=== PATIENT | female | born 1940 | race Hispanic/Latino ===

== ENCOUNTER 2021-05-20 17:32 | Emergency (ER) | payer SELFPAY ==
[2021-05-20 19:02] LABS: Absolute Lymphocytes (CBC) 2.8 K/uL (0.7-4.9); Basophils % 0.7 % (0-1.3); Hematocrit 41.3 % (36.0-45.0); MPV 9.4 fL (7.6-11.3); RBC Red Blood Cell Count 4.49 M/uL (3.86-4.86)
[2021-05-20 19:19] LABS: ALT/SGPT 24 U/L (12-78); AST/SGOT 23 U/L (15-37); Albumin 3.9 g/dL (3.4-5.0); Alkaline Phosphatase 104 U/L (45-117); BUN Blood Urea Nitrogen 15 mg/dL (7-18); Bicarbonate 32 mmol/L (21-32); Bilirubin Direct 0.1 mg/dL (0-0.2); Bilirubin Total 0.4 mg/dL (0.2-1.0); Glucose Level 106 mg/dL (74-106); Lipase 200 U/L (73-393); Magnesium 2.3 mg/dL (1.8-2.4); NT PRO-BNP 145 pg/mL (<450); Potassium 4.3 mmol/L (3.5-5.1); Protein, Total 8.4 g/dL (6.4-8.2); Sodium Level 143 mmol/L (136-145); Troponin (Emerg Dept Use Only) < 0.02 ng/mL (0.0-0.045)
[2021-05-20 19:45] LABS: Protime INR 1.06
--- NOTE | 2021-05-20 21:18 | RAD REPORT ---
EXAM DESCRIPTION: CT - Abdomen Pelvis W Contrast - 05/20/2021 8:51 pm CLINICAL HISTORY: ABD PAIN COMPARISON: <Comparisons> TECHNIQUE: Biphasic, helical CT imaging of the abdomen and pelvis was performed following 100 ml non -ionic IV contrast. No oral contrast administered. All CT scans are performed using dose optimization technique as appropriate and may include automated exposure control or mA/KV adjustment according to patient size. FINDINGS: No suspicious findings in the lung bases. The liver, spleen, and pancreas show no suspicious findings. Gallbladder and biliary tree are also wi thout suspicious finding. Symmetric renal function is seen with no hydronephrosis or suspicious renal mass. No pyelonephritis o r acute parenchymal process. No bladder abnormalities. No adrenal abnormalities. No acute uterine fin ding seen. There is a 3 centimeter posterior fundal fibroid. No ovarian abnormality seen. No dilated bowel loops or bowel wall thickening. No appendicitis. Prominent sigmoid diverticulosis is present. No acute diverticulitis seen. Mild mucosal level inflammatory bowel changes can still be pr esent. No free air, free fluid or inflammatory stranding. No hernia, mass or bulky lymphadenopathy. No suspicious bony findings. IMPRESSION: Contrast enhanced CT abdomen and pelvis showing no emergent finding. Patient has prominent sigmoid diverticulosis without acute diverticulitis. Mild mucosal level inflamm atory bowel changes are still possible.
[2021-05-20 21:29] LABS: Urine Blood 1+ (Negative); Urine Glucose Negative (Negative); Urine Protein Negative (Negative); Urine Specific Gravity 1.015 (1.005-1.030)
--- NOTE | 2021-05-20 21:47 | EDPHYS ---
Physician Documentation [facility] Name: Juana Shah Age: 81 yrs Sex: Female : 1940 Arrival Date: 05/20/2021 Time: 17:33 Bed 28 Private MD: ED Physician Michael Larsen HPI: 05/20 18:49 This 81 yrs old Female presents to ER via Ambulatory with complaints of pm1 Epigastric Pain, rib pain. 18:49 The patient presents with abdominal pain in the left upper quadrant. Onset: The pm1 symptoms/episode began/occurred 3 day(s) ago. The symptoms do not radiate. Associated signs and symptoms: none. Pertinent negatives: nausea, vomiting, and diarrhea, chest pain, shortness of breath. The symptoms are described as achy. Modifying factors: The symptoms are alleviated by nothing, the symptoms are aggravated by nothing. Severity of pain: in the emergency department the pain has resolved. The patient has not experienced similar symptoms in the past. The patient has not recently seen a physician. Historical: - Allergies: 17:39 No Known Allergies; sv - PMHx: 17:41 HTN; High cholesterol; sv - PSHx: 17:39 section; sv - Immunization history:: Adult Immunizations up to date. - Social history:: Smoking status: Patient denies any tobacco usage or history of. ROS: 18:49 Constitutional: Negative for fever, chills, and weight loss, Cardiovascular: Negative pm1 for chest pain, palpitations, and edema, Respiratory: Negative for shortness of breath, cough, wheezing, and pleuritic chest pain. 18:49 Back: Negative for injury and pain, : Negative for injury, bleeding, discharge, and swelling, MS/Extremity: Negative for injury and deformity, Skin: Negative for injury, rash, and discoloration, Neuro: Negative for headache, weakness, numbness, tingling, and seizure. 18:49 Abdomen/GI: Positive for abdominal pain, Negative for nausea, vomiting, and diarrhea, constipation. 18:49 All other systems are negative. Exam: 18:49 Constitutional: This is a well developed, well nourished patient who is awake, alert, pm1 and in no acute distress. Head/Face: Normocephalic, atraumatic. 18:49 Back: No spinal tenderness. No costovertebral tenderness. Full range of motion. Skin: Warm, dry with normal turgor. Normal color with no rashes, no lesions, and no evidence of cellulitis. MS/ Extremity: Pulses equal, no cyanosis. Neurovascular intact. Full, normal range of motion. 18:49 Cardiovascular: Exam negative for acute changes, Rate: normal, Rhythm: regular, Pulses: no pulse deficits are appreciated. 18:49 Respiratory: Exam negative for acute changes, respiratory distress, shortness of breath, Breath sounds: are clear throughout. 18:49 Abdomen/GI: Exam negative for acute changes, Inspection: obese Palpation: abdomen is soft and non-tender, in all quadrants. 18:49 Neuro: Exam negative for acute changes, Orientation: is normal, Mentation: is normal, Motor: is normal, moves all fours. Vital Signs: 17:40 BP 192 / 83; Pulse 75; Resp 16; Temp 98.2; Pulse Ox 98% ; Weight 63.5 kg; sv 18:29 BP 192 / 83; Pulse 75; Resp 16; Temp 98.2; Pulse Ox 98% on R/A; kh1 19:40 BP 178 / 62; Pulse 71; Resp 15; Temp 98.5(O); Pulse Ox 100% on R/A; Pain 0/10; bc5 22:30 BP 182 / 78; Pulse 75; Resp 17; Temp 97.9(O); Pulse Ox 100% on R/A; Pain 0/10; bc5 MDM: 18:45 Patient medically screened. pm1 21:46 Data reviewed: vital signs. Data interpreted: Pulse oximetry: on room air is 100 %. pm1 Interpretation: normal. Counseling: I had a detailed discussion with the patient and/or guardian regarding: the historical points, exam findings, and any diagnostic results supporting the discharge/admit diagnosis, lab results, radiology results, the need for outpatient follow up, to return to the emergency department if symptoms worsen or persist or if there are any questions or concerns that arise at home. 22:05 ED course: Patient requesting refill of hypertension medications. pm1 05/20 18:45 Order name: Basic Metabolic Panel; Complete Time: 19:28 pm1 05/20 18:45 Order name: CBC with Diff; Complete Time: 19:28 pm1 05/20 18:45 Order name: LFT's; Complete Time: 19:28 pm1 05/20 18:45 Order name: Magnesium; Complete Time: 19:28 pm1 05/20 18:45 Order name: NT PRO-BNP; Complete Time: 19:28 pm1 05/20 18:45 Order name: PT-INR; Complete Time: 19:48 pm1 05/20 18:45 Order name: Troponin (emerg Dept Use Only); Complete Time: 19:28 pm1 05/20 18:45 Order name: XRAY Chest (1 view); Complete Time: 21:53 pm1 05/20 18:45 Order name: EKG; Complete Time: 18:46 pm1 05/20 18:45 Order name: Cardiac monitoring; Complete Time: 18:52 pm1 05/20 18:45 Order name: EKG - Nurse/Tech; Complete Time: 18:52 pm1 05/20 18:45 Order name: CT Abd/Pelvis - IV Contrast Only; Complete Time: 21:29 pm1 05/20 18:45 Order name: Lipase; Complete Time: 19:28 pm1 05/20 21:28 Order name: Urine Dipstick-Ancillary; Complete Time: 21:33 EDMS 05/20 18:45 Order name: IV Saline Lock; Complete Time: 18:52 pm1 05/20 18:45 Order name: Labs collected and sent; Complete Time: 18:52 pm1 05/20 18:45 Order name: O2 Per Protocol; Complete Time: 18:52 pm1 05/20 18:45 Order name: O2 Sat Monitoring; Complete Time: 18:52 pm1 Administered Medications: No medications were administered Disposition Summary: 05/20/21 21:46 Discharge Ordered Location: Home pm1 Problem: new pm1 Symptoms: have improved pm1 Condition: Stable pm1 Diagnosis - Abdominal pain, unspecified pm1 Followup: pm1 - With: Emergency Department - When: As needed - Reason: Worsening of condition Followup: pm1 - With: Private Physician - When: 2 - 3 days - Reason: Recheck today's complaints, Continuance of care, Re-evaluation by your physician Discharge Instructions: - Discharge Summary Sheet pm1 - Abdominal Pain, Adult pm1 Forms: - Medication Reconciliation Form pm1 - Thank You Letter pm1 - Antibiotic Education pm1 - Prescription Opioid Use pm1 Prescriptions: - dicyclomine 20 mg Oral Tablet - take 1 tablet by ORAL route every 6 hours As needed; 20 tablet; Refills: 0, pm1 Product Selection Permitted - Avalide 150-12.5 mg Oral tablet - take 2 tablet by ORAL route once daily; 30 tablet; Refills: 0, Product pm1 Selection Permitted Addendum: 05/23/2021 08:55 Co-signature as Attending Physician, Michael Larsen MD. r n Signatures: Dispatcher [employer] Bhumi Hathaway RN RN sv Nieto, Roman, MD MD rn Marinas, Patrick, EUSEBIO IMMIGRATION INVESTIGATOR pm1 Corrections: (The following items were deleted from the chart) 05/20 17:41 17:39 PMHx: None; kaleb manuel
--- NOTE | 2021-05-20 21:47 | ER ---
Nurse's Notes [facility] Name: Juana Shah Age: 81 yrs Sex: Female : 1940 Arrival Date: 05/20/2021 Time: 17:33 Bed 28 Private MD: Diagnosis: Abdominal pain, unspecified Presentation: 05/20 17:39 Chief complaint: Patient states: epigastric pain since Wednesday, worse with movement. sv Pt pointing to her bilateral ribcage area. Risk Assessment: Do you want to hurt yourself or someone else? Patient reports no desire to harm self or others. Onset of symptoms was May 17, 2021. 17:39 Method Of Arrival: Ambulatory sv 17:39 Acuity: ABBEY 3 sv 17:40 Coronavirus screen: Vaccine status: Patient reports receiving the 2nd dose of the covid sv vaccine. Patient reports receiving the 1st dose of the Covid vaccine. Ebola Screen: No symptoms or risks identified at this time. 17:40 Initial Sepsis Screen: Does the patient meet any 2 criteria? No. Patient's initial sv sepsis screen is negative. Does the patient have a suspected source of infection? No. Patient's initial sepsis screen is negative. Triage Assessment: 17:40 General: Appears in no apparent distress. comfortable, Behavior is calm, cooperative, sv appropriate for age. Neuro: Level of Consciousness is awake, alert, obeys commands, Gait is steady. Respiratory: Respiratory effort is even, unlabored. Historical: - Allergies: 17:39 No Known Allergies; sv - PMHx: 17:41 HTN; High cholesterol; sv - PSHx: 17:39 section; sv - Immunization history:: Adult Immunizations up to date. - Social history:: Smoking status: Patient denies any tobacco usage or history of. Screenin:30 Abuse screen: Denies threats or abuse. Nutritional screening: No deficits noted. kh1 Tuberculosis screening: No symptoms or risk factors identified. Never had TB. Possible symptoms: None Risk factors: None. Fall Risk None identified. No fall in past 12 months (0 pts). IV access (20 points). Assessment: 18:27 General: Appears in no apparent distress. comfortable, Behavior is calm, cooperative, kh1 appropriate for age. Pain: Complains of pain in abdomen Pain does not radiate. Pain currently is 10 out of 10 on a pain scale. at worst was 10 out of 10 on a pain scale. Quality of pain is described as sharp, Pain began 2-3 days ago. Is continuous, Alleviated by Aggravated by deep breaths. Neuro: No deficits noted. Level of Consciousness is awake, alert, obeys commands, Oriented to person, place, time, situation, Appropriate for age Mechanical Development Engineer are equal bilaterally Moves all extremities. Speech is normal, Reports Denies. GI: Abdomen is round Abd is soft Abdomen is tender to palpation in epigastric area and left upper quadrant Reports lower abdominal pain, Patient currently denies diarrhea, nausea, vomiting. : No deficits noted. Reports Denies pain urinary frequency. 19:33 Reassessment: Initial contact. Pt sitting up in stretcher with eyes open, RR is even bc5 and unlabored, pt denies pain at this time. NAD, VSS, WCTM. Pt and son updated on POC. No further needs at this time. Vital Signs: 17:40 BP 192 / 83; Pulse 75; Resp 16; Temp 98.2; Pulse Ox 98% ; Weight 63.5 kg; sv 18:29 BP 192 / 83; Pulse 75; Resp 16; Temp 98.2; Pulse Ox 98% on R/A; kh1 19:40 BP 178 / 62; Pulse 71; Resp 15; Temp 98.5(O); Pulse Ox 100% on R/A; Pain 0/10; bc5 22:30 BP 182 / 78; Pulse 75; Resp 17; Temp 97.9(O); Pulse Ox 100% on R/A; Pain 0/10; bc5 Vitals: 18:29 Cardiac Rhythm Assessment Regular Sinus rhythm. count includes the [facility] ED Course: 17:33 Patient arrived in ED. am2 17:38 Arm band placed on. sv 17:39 Triage completed. sv 18:27 Estella Alcantar is Primary Nurse. 1 18:39 Juan Diego Dozier NP is PHCP. pm1 18:39 Michael Larsen MD is Attending Physician. pm1 18:52 Lipase Sent. kh1 18:52 Basic Metabolic Panel Sent. kh1 18:52 CBC with Diff Sent. 1 18:54 Initial lab(s) drawn, by me, sent to lab. Missed attempt(s): 20 gauge in right in left mh5 forearm. antecubital area. 22 gauge. 18:55 Patient has correct armband on for positive identification. Placed in gown. Bed in low 5 position. Call light in reach. Side rails up X2. Adult w/ patient. Warm blanket given. Pillow given. monitoring specialist on. Pulse ox on. NIBP on. 18:55 EKG done, by ED staff, reviewed by Juan Diego Dozier PEST CONTROL SERVICE TECHNICIAN. [facility] 18:56 LFT's Sent. [facility] 18:56 Magnesium Sent. 5 18:56 NT PRO-BNP Sent. 5 18:56 PT-INR Sent. [facility] 18:56 Troponin (emerg Dept Use Only) Sent. [facility] 19:25 XRAY Chest (1 view) In Process Unspecified. EDMS 20:51 CT Abd/Pelvis - IV Contrast Only In Process Unspecified. EDMS 22:30 No provider procedures requiring assistance completed. IV discontinued, intact, bc5 bleeding controlled, No redness/swelling at site. Pressure dressing applied. Administered Medications: No medications were administered Outcome: 21:46 Discharge ordered by MD. pm1 22:30 [facility] 22:30 Condition: stable 22:30 Discharge instructions given to patient. 22:30 Instructed on discharge instructions, follow up and referral plans. medication usage, Prescriptions given X 2. 22:31 [facility] the ED[facility] Signatures: Dispatcher [employer] Bhumi Hathaway, RN RN Juan Diego Mendez NP PEST CONTROL SERVICE TECHNICIAN pm1 Eileen Espino 5 Kaci Catalan am2 Estella Alcantar 1 Kelsea Perry, RN RN bc5 Corrections: (The following items were deleted from the chart) 17:38 17:38 Patient placed sv sv 17:41 17:39 PMHx: None; sv sv 17:42 17:40 Temp 98.2F; sv sv 17:42 17:40 Pulse 75bpm; Resp 16bpm; Pulse Ox 98%; Temp 98.2F; 63.5 kg; sv sv 17:56 17:39 Chief complaint: Patient states: epigastric pain since Wednesday, worse with sv movement. sv
--- NOTE | 2021-05-20 21:50 | RAD REPORT ---
EXAM DESCRIPTION: RAD - Chest Single View - 05/20/2021 7:29 pm CLINICAL HISTORY: RIB PAIN - LEFT COMPARISON: None TECHNIQUE: AP portable chest image was obtained 05/20/2021 7:29 pm . FINDINGS: Lungs are clear. Heart and vasculature are normal. No measurable pleural effusion and no p neumothorax. No acute bony abnormality seen. No acute aortic findings suspected. IMPRESSION: No acute cardiopulmonary process.
[2021-05-20 22:38] VITALS: O2SAT 100
[2021-05-20 22:39] VITALS: BP 182/78; TEMP 97.9
--- NOTE | 2021-05-21 16:44 | EKG ---
Test Date: 2021-05-20 Test Time: 18:29:55 Privacy Compliance Manager: LYLE MEASUREMENT RESULTS: Intervals: Rate: 77 MD: 150 QRSD: 78 QT: 384 QTc: 434 [place]: P: 65 MD: 150 QRS: 49 T: 63 INTERPRETIVE STATEMENTS: Normal sinus rhythm Nonspecific ST abnormality Abnormal ECG No previous ECG available for comparison Electronically Signed On 05-21-21 16:42:50 CDT by Randolph Warren
== END 2021-05-20 22:31 | disposition home or self-care (01) ==
LOC: ER 17:32 → EDBD 17:32 → ER 22:31
DX: R10.12 Left upper quadrant pain (principal); I10 Essential (primary) hypertension
CPT/HCPCS: 36415; 71045; 74177; 80048; 80076; 81003; 83690; 83735; 83880; 84484; 85025; 85610; 93005; 99284; Q9967